=== PATIENT | female | born 1985 | race Caucasian/White ===

== ENCOUNTER 2017-04-17 23:59 | Emergency (ER) | payer OTHER ==
[2017-04-18 00:05] VITALS: TEMP 98.5
--- NOTE | 2017-04-18 01:03 | ED ---
Extremity Problem HPI - General Chief complaint: Extremity Problem,Nontraumatic Stated complaint: L leg numbness Time Seen by Provider: 04/18/17 00:19 Source: patient Mode of arrival: ambulatory Limitations: no limitations - Related Data Home Medications Medication Instructions Recorded Confirmed Albuterol Inhaler [Ventolin Hfa 1 - 2 puff INHALATION Q6HR PRN 08/29/16 04/18/17 Inhaler] Previous Rx's Medication Instructions Recorded Cyclobenzaprine [Flexeril] 10 mg PO TID #12 tab 04/18/17 Ibuprofen [Motrin] 600 mg PO Q6HR PRN #20 tab 04/18/17 methylPREDNISolone Dose Pack 4 mg PO DIRECTED #21 package 04/18/17 [Medrol Dose Pack] Allergies Allergy/AdvReac Type Severity Reaction Status Date / Time cefaclor [From Ceclor] Allergy Unknown Verified 04/18/17 00:05 Penicillins Allergy Unknown Verified 04/18/17 00:05 Review of Systems ROS Statement: Those systems with pertinent positive or pertinent negative responses have been documented in the HPI. ROS Other: All systems not noted in ROS Statement are negative. Past Medical History Past Medical History: Asthma History of Any Multi-Drug Resistant Organisms: None Reported Past Surgical History: No Surgical Hx Reported Past Psychological History: No Psychological Hx Reported Smoking Status: Current every day smoker Past Alcohol Use History: Rare Past Drug Use History: None Reported General Exam Limitations: no limitations Course Vital Signs 04/18/17 00:02 Temperature 98.5 F Pulse Rate 116 H Respiratory 18 Rate Blood Pressure 140/90 O2 Sat by Pulse 99 Oximetry Disposition Clinical Impression: Left thigh pain, Paresthesia of left leg Disposition: HOME SELF-CARE Condition: Good Instructions: Paresthesia (ED) Additional Instructions: Patient advised to follow-up with her primary care provider. Return to the emergency department if any alarming signs or symptoms occur. Recommended doing massage and applying heat and ice over the area. Prescriptions: Cyclobenzaprine [Flexeril] 10 mg PO TID #12 tab Ibuprofen [Motrin] 600 mg PO Q6HR PRN #20 tab PRN Reason: Pain methylPREDNISolone Dose Pack [Medrol Dose Pack] 4 mg PO DIRECTED #21 package Referrals: Hakeem Marley MD [Primary Care Provider] - 1-2 days Time of Disposition: 01:03
--- NOTE | 2017-04-18 01:44 | US ---
EXAM: US Duplex Left Lower Extremity Veins CLINICAL HISTORY: Reason: Pain TECHNIQUE: Real-time ultrasound scan of the veins of the left lower extremity with color Doppler flow, spectral waveform analysis and compression. COMPARISON: No relevant prior studies available. FINDINGS: Deep veins: Unremarkable. No DVT in the visualized common femoral, femoral, proximal deep femoral or popliteal veins. The veins are compressible with normal color flow and augmentation. Superficial veins: Unremarkable. No thrombus in the visualized great saphenous vein or in the lesser saphenous vein. Soft tissues: No acute findings. No popliteal cyst. IMPRESSION: Normal left lower extremity duplex venous ultrasound.
[2017-04-18 02:16] VITALS: BP 122/72; PULSE 87; RESP 16
== END 2017-04-18 02:16 | disposition home or self-care (01) ==
LOC: EC 23:59
DX: M79.652 Pain in left thigh (principal); R20.9 Unspecified disturbances of skin sensation; F17.200 Nicotine dependence, unspecified, uncomplicated; Z88.0 Allergy status to penicillin; Z88.1 Allergy status to other antibiotic agents
CPT/HCPCS: 99284

== ENCOUNTER 2018-03-09 17:17 | Inpatient (IN) | payer OTHER ==
[2018-03-09] MEDS ORDERED: SODIUM CHLORIDE 0.9% 1,000 ML IV STA (18:13)
--- NOTE | 2018-03-09 18:18 | ED ---
General Adult HPI <Josué Cruz - Last Filed: 03/09/18 19:36> - General Source: patient, RN notes reviewed Mode of arrival: ambulatory Limitations: no limitations <Gavin Damon - Last Filed: 03/09/18 19:48> - General Chief complaint: Neuro Symptoms/Deficit Stated complaint: Right SIde Numbness Time Seen by Provider: 03/09/18 18:04 - History of Present Illness Initial comments: 32-year-old female presents to the emergency room today with a chief complaint of numbness tingling sensation to the right side of her body. Patient does admit that she had episodes yesterday feeling some numbness tingling sensation that occurred yesterday around 5 PM. She states that last approximately hour. She states she thought maybe she just slept wrong as she had recently got up and was laying on that side. Patient states that she felt fine the rest the day. She states woke up this morning approximately 9 AM. She states that she began to notice that she had some numbness and tingling to the right upper and lower extremity when she would touch something noticed that it felt different than the opposite side. She states symptoms are now having some numbness and tingling sensation even without touching to the right upper extremity from the elbow down to the fingertips. Patient states that even the right side of her face and head feels different when compared to the left when she touches this area. Patient does admit to slight headache that began while waiting here in the emergency room. Patient also admits to some pain to the right ear at time she's describes as "sharp" type pain. Patient denies any other complaints or symptoms at this time. Patient denies any recent fever, chills, shortness of breath, chest pain, back pain, abdominal pain, nausea or vomiting, dysuria or hematuria, constipation or diarrhea, visual changes, or any other complaints. ( Gavin Damon) - Related Data Home Medications Medication Instructions Recorded Confirmed Albuterol Inhaler [Ventolin Hfa 1 - 2 puff INHALATION RT-Q6H PRN 08/29/16 Inhaler] Allergies Allergy/AdvReac Type Severity Reaction Status Date / Time cefaclor [From [facility]] Allergy Unknown Verified 03/09/18 18:03 Penicillins Allergy Unknown Verified 03/09/18 18:03 Review of Systems ROS Other: All systems not noted in ROS Statement are negative. <Josué Cruz - Last Filed: 03/09/18 19:36> ROS Other: All systems not noted in ROS Statement are negative. <Gavin Damon - Last Filed: 03/09/18 19:48> ROS Statement: Those systems with pertinent positive or pertinent negative responses have been documented in the HPI. Past Medical History Past Medical History: Asthma History of Any Multi-Drug Resistant Organisms: None Reported Past Surgical History: No Surgical Hx Reported Past Psychological History: No Psychological Hx Reported Smoking Status: Current every day smoker Past Alcohol Use History: Rare Past Drug Use History: None Reported <Gavin Damon - Last Filed: 03/09/18 19:48> General Exam <Josué Cruz - Last Filed: 03/09/18 19:36> Limitations: no limitations <Gavin Damon - Last Filed: 03/09/18 19:48> - General Exam Comments Initial Comments: General: The patient is awake and alert, in no distress, and does not appear acutely ill. Eye: Pupils are equal, round and reactive to light, extra-ocular movements are intact. No nystagmus. There is normal conjunctiva bilaterally. No signs of icterus. Ears, nose, mouth and throat: There are moist mucous membranes and no oral lesions. Neck: The neck is supple, there is no tenderness or JVD. Cardiovascular: There is a regular rate and rhythm. No murmur, rub or gallop is appreciated. Respiratory: Lungs are clear to auscultation, respirations are non-labored, breath sounds are equal. No wheezes, stridor, rales, or rhonchi. Gastrointestinal: Soft, non-distended, non-tender abdomen without masses or organomegaly noted. There is no rebound or guarding present. No CVA tenderness. Musculoskeletal: Normal ROM, no tenderness. Strength 5/5. Sensation intact. Pulses equal bilaterally 2+. Neurological: A&O x 3. CN II-XII intact, There are no obvious motor or sensory deficits. Coordination appears grossly intact. Speech is normal. Normal finger nose testing. Normal rapid alternating movements. Strength 5/5 in both upper and lower extremity. Normal gait. Skin: Skin is warm and dry and no rashes or lesions are noted. Psychiatric: Cooperative, appropriate mood & affect, normal judgment. (Gavin Damon) Course <Josué Cruz - Last Filed: 03/09/18 19:36> <Gavin Damon - Last Filed: 03/09/18 19:48> Vital Signs 03/09/18 17:31 Temperature 98.2 F Pulse Rate 86 Respiratory 16 Rate Blood Pressure 147/83 O2 Sat by Pulse 98 Oximetry - Reevaluation(s) Reevaluation #1: 03/09/18 19:34 PA supervision: I did proceed a [id number] evaluation the patient did discuss the findings with her. Patient did have onset yesterday afternoon more than 24 hours ago of right facial and extremity numbness which has persisted throughout the night and today. CAT scan imaging does show evidence of a hypodense area approximately 1 cm along the cortical margin of the posterior right frontal lobe I did discuss the findings with the patient and with Dr. Marley. Patient will be admitted with consultation by neurology. Patient currently is not an acute interventional candidate at this time (Josué Cruz) Reevaluation #2: 03/09/18 19:36 The patient is a smoker we did discuss the benefits of smoking cessation and discussed the risks factors of continuing to smoke. Patient states she is in the process of trying to quit. Entire conversation lasting about 3.1 minutes. ( Josué Cruz) Medical Decision Making - Lab Data Result diagrams: 03/09/18 18:32 03/09/18 18:32 <Josué Cruz - Last Filed: 03/09/18 19:36> - Lab Data Result diagrams: 03/09/18 18:32 03/09/18 18:32 <Gavin Damon - Last Filed: 03/09/18 19:48> - Lab Data Lab Results 03/09/18 03/09/18 03/09/18 Range/Units 18:32 18:32 18:32 WBC 10.7 H (3.8-10.6) k/uL RBC 4.99 (3.80-5.40) m/uL Hgb 13.3 (11.4-16.0) gm/dL Hct 40.6 (34.0-46.0) % MCV 81.4 (80.0-100.0) fL MCH 26.7 (25.0-35.0) pg MCHC 32.9 (31.0-37.0) g/dL RDW 13.3 (11.5-15.5) % Plt Count 255 (150-450) k/uL Neutrophils % 69 % Lymphocytes % 21 % Monocytes % 5 % Eosinophils % 4 % Basophils % 1 % Neutrophils # 7.3 (1.3-7.7) k/uL Lymphocytes # 2.2 (1.0-4.8) k/uL Monocytes # 0.5 (0-1.0) k/uL Eosinophils # 0.4 (0-0.7) k/uL Basophils # 0.1 (0-0.2) k/uL PT (9.0-12.0) sec INR (<1.2) APTT (22.0-30.0) sec Sodium 146 H (137-145) mmol/L Potassium 4.1 (3.5-5.1) mmol/L Chloride 105 (98-107) mmol/L Carbon Dioxide 25 (22-30) mmol/L Anion Gap 16 mmol/L BUN 14 (7-17) mg/dL Creatinine 0.70 (0.52-1.04) mg/dL Est GFR (CKD-EPI)AfAm >90 (>60 ml/min/1.73 sqM) Est GFR (CKD-EPI)NonAf >90 (>60 ml/min/1.73 sqM) Glucose 86 (74-99) mg/dL Calcium 9.4 (8.4-10.2) mg/dL Total Bilirubin 0.1 L (0.2-1.3) mg/dL AST 21 (14-36) U/L ALT 45 (9-52) U/L Alkaline Phosphatase 104 (38-126) U/L Total Protein 7.2 (6.3-8.2) g/dL Albumin 4.4 (3.5-5.0) g/dL Urine Color Urine Appearance (Clear) Urine pH (5.0-8.0) Ur Specific Abbott (1.001-1.035) Urine Protein (Negative) Urine Glucose (UA) (Negative) Urine Ketones (Negative) Urine Blood (Negative) Urine Nitrite (Negative) Urine Bilirubin (Negative) Urine Urobilinogen (<2.0) mg/dL Ur Leukocyte Esterase (Negative) Urine RBC (0-5) /hpf Urine WBC (0-5) /hpf Ur Squamous Epith Cells (0-4) /hpf Urine Bacteria (None) /hpf Urine Mucus (None) /hpf Urine HCG, Qual Not Detected (Not Detectd) 03/09/18 03/09/18 Range/Units 18:32 18:32 WBC (3.8-10.6) k/uL RBC (3.80-5.40) m/uL Hgb (11.4-16.0) gm/dL Hct (34.0-46.0) % MCV (80.0-100.0) fL MCH (25.0-35.0) pg MCHC (31.0-37.0) g/dL RDW (11.5-15.5) % Plt Count (150-450) k/uL Neutrophils % % Lymphocytes % % Monocytes % % Eosinophils % % Basophils % % Neutrophils # (1.3-7.7) k/uL Lymphocytes # (1.0-4.8) k/uL Monocytes # (0-1.0) k/uL Eosinophils # (0-0.7) k/uL Basophils # (0-0.2) k/uL PT 9.8 (9.0-12.0) sec INR 1.0 (<1.2) APTT 24.9 (22.0-30.0) sec Sodium (137-145) mmol/L Potassium (3.5-5.1) mmol/L Chloride (98-107) mmol/L Carbon Dioxide (22-30) mmol/L Anion Gap mmol/L BUN (7-17) mg/dL Creatinine (0.52-1.04) mg/dL Est GFR (CKD-EPI)AfAm (>60 ml/min/1.73 sqM) Est GFR (CKD-EPI)NonAf (>60 ml/min/1.73 sqM) Glucose (74-99) mg/dL Calcium (8.4-10.2) mg/dL Total Bilirubin (0.2-1.3) mg/dL AST (14-36) U/L ALT (9-52) U/L Alkaline Phosphatase (38-126) U/L Total Protein (6.3-8.2) g/dL Albumin (3.5-5.0) g/dL Urine Color Yellow Urine Appearance Cloudy H (Clear) Urine pH 7.5 (5.0-8.0) Ur Specific Abbott 1.019 (1.001-1.035) Urine Protein Negative (Negative) Urine Glucose (UA) Negative (Negative) Urine Ketones Negative (Negative) Urine Blood Negative (Negative) Urine Nitrite Negative (Negative) Urine Bilirubin Negative (Negative) Urine Urobilinogen <2.0 (<2.0) mg/dL Ur Leukocyte Esterase Large H (Negative) Urine RBC 3 (0-5) /hpf Urine WBC 14 H (0-5) /hpf Ur Squamous Epith Cells 10 H (0-4) /hpf Urine Bacteria Rare H (None) /hpf Urine Mucus Rare H (None) /hpf Urine HCG, Qual (Not Detectd) Disposition <Josué Cruz - Last Filed: 03/09/18 19:36> Is patient prescribed a controlled substance at d/c from ED?: No Time of Disposition: 19:35 <Gavin Damon - Last Filed: 03/09/18 19:48> Clinical Impression: CVA (cerebral vascular accident) Disposition: ADMITTED IP TO THIS HOSP Condition: Stable Referrals: Hakeem Marley MD [Primary Care Provider] - 1-2 days
[2018-03-09 18:43] LABS: Basophils # (A) 0.1 k/uL (0-0.2); Basophils % (A) 1 %; Eosinophils # (A) 0.4 k/uL (0-0.7); Eosinophils % (A) 4 %; HCT 40.6 % (34.0-46.0); HGB 13.3 gm/dL (11.4-16.0); Lymphocytes # (A) 2.2 k/uL (1.0-4.8); Lymphocytes % (A) 21 %; MCH 26.7 pg (25.0-35.0); MCHC 32.9 g/dL (31.0-37.0); MCV 81.4 fL (80.0-100.0); Mean Platelet Volume 8.3; Monocytes # (A) 0.5 k/uL (0-1.0); Monocytes % (A) 5 %; Neutrophils # (A) 7.3 k/uL (1.3-7.7); Neutrophils % (A) 69 %; Platelet Count 255 k/uL (150-450); RBC 4.99 m/uL (3.80-5.40); RDW 13.3 % (11.5-15.5); WBC 10.7 k/uL (3.8-10.6)
[2018-03-09 18:46] LABS: Appearance,Urine Cloudy (Clear); Bacteria,Urine Rare /hpf; Bilirubin,Urine Negative (Negative); Blood,Urine Negative (Negative); Color,Urine Yellow; Glucose,Urine (UA) Negative (Negative); Ketones,Urine Negative (Negative); Leukocyte Esterase,Urine Large (Negative); Mucus,Urine Rare /hpf; Nitrite,Urine Negative (Negative); PH, Urine 7.5 (5.0-8.0); Protein,Urine Negative (Negative); RBC,Urine 3 /hpf (0-5); Specific Gravity,Urine 1.019 (1.001-1.035); Squamous Epithelial Cell,Urine 10 /hpf (0-4); Urobilinogen,Urine <2.0 mg/dL (<2.0); WBC,Urine 14 /hpf (0-5)
[2018-03-09 18:52] LABS: ALT 45 U/L (9-52); AST 21 U/L (14-36); Albumin 4.4 g/dL (3.5-5.0); Alkaline Phosphatase 104 U/L (38-126); Anion Gap 16 mmol/L; Blood Urea Nitrogen 14 mg/dL (7-17); Calcium 9.4 mg/dL (8.4-10.2); Carbon Dioxide 25 mmol/L (22-30); Chloride 105 mmol/L (98-107); Glucose 86 mg/dL (74-99); Partial Thromboplastin Time 24.9 sec (22.0-30.0); Potassium 4.1 mmol/L (3.5-5.1); Prothrombin Time 9.8 sec (9.0-12.0); Sodium 146 mmol/L (137-145); Total Bilirubin 0.1 mg/dL (0.2-1.3); Total Protein 7.2 g/dL (6.3-8.2)
--- NOTE | 2018-03-09 19:09 | CT ---
EXAMINATION TYPE: CT brain wo con DATE OF EXAM: 03/09/2018 COMPARISON: NONE INDICATION: RIGHT SIDE TINGLING DLP: 1121 mGycm, Automated exposure control for dose reduction was used. CONTRAST: None CT of the brain is performed utilizing 3 mm thick sections through the posterior fossa and 3 mm thick sections through the remaining calvarium. Study is performed within 24 hours of arrival to the hosp [facility]. No abnormal hyperdensity is present to suggest an acute intracranial hemorrhage. No mass lesion is evident. There is a subtle hypodense wedge defect along the left posterior frontal region. Series 3 images 32- 33. Small cortical infarct be considered. This could be confirmed with MRI. Ventricles and sulci are appropriate for the patient age. Paranasal sinuses and mastoid air cells within the [id number] are clear. IMPRESSIONS: 1. There is a approximately 1 cm area of hypodensity along the cortical margin of the posterior rig ht frontal lobe. This could be an acute ischemic change. Consider follow-up MRI for confirmation.
[2018-03-09] MEDS ORDERED: ASPIRIN 325 MG TAB PO STA (19:45)
--- NOTE | 2018-03-10 01:56 | US ---
EXAMINATION TYPE: US carotid duplex BILAT DATE OF EXAM: 03/09/2018 COMPARISON: NONE CLINICAL HISTORY: Stenosis. Tingling on the right side. EXAM MEASUREMENTS: RIGHT: Peak Systolic Velocity (PSV) cm/sec ----- Right CCA: 79.0 ----- Right ICA: 82.2 ----- Right ECA: 122.6 ICA/CCA ratio: 1.0 RIGHT: End Diastole cm/sec ----- Right CCA: 19.2 ----- Right ICA: 24.1 ----- Right ECA: 19.2 LEFT: Peak Systolic Velocity (PSV) cm/sec ----- Left CCA: 98.3 ----- Left ICA: 106.2 ----- Left ECA: 153.5 ICA/CCA ratio: 1.1 LEFT: End Diastole cm/sec ----- Left CCA: 23.4 ----- Left ICA: 21.5 ----- Left ECA: 17.5 VERTEBRALS (direction of flow): Right Vertebral: Antegrade Left Vertebral: Antegrade Rhythm: Normal No significant stenosis seen. Elevated velocities in the Left ECA. IMPRESSION: There is antegrade flow in the vertebral arteries. The images and measurements suggest c lose to 0% stenosis in both internal carotid arteries. Criteria for Assigning % of Stenosis / Diameter reduction (Estimation based on the indirect measurements of the internal carotid artery velocities (ICA PSV). 1. Normal (no stenosis)=ICA PSV < 125 cm/s: ratio < 2.0: ICA EDV<40 cm/s. 2. Less than 50% stenosis=ICA PSV < 125 cm/s: ratio < 2.0: ICA EDV<40 cm/s. 3. 50 to 69% stenosis=ICA PSV of 125 to 230 cm/s: ration 2.0 ? 4.0: ICA EDV 40-100 cm/s. 4. Greater than 70% stenosis to near occlusion= ICA PSV > 230 cm/s: ratio > 4.0: ICA EDV > 100 cm/s. 5. Near occlusion= ICA PSV velocities may be low or undetectable: variable ratio and ICA EDV. 6. Total occlusion=unable to detect flow.
[2018-03-10 02:36] LABS: Cholesterol 162 mg/dL (<200); HDL Cholesterol 46 mg/dL (40-60); LDL Cholesterol,Calculated 85 mg/dL (0-99); Triglycerides 154 mg/dL (<150)
[2018-03-10] MEDS ORDERED: ALBUTEROL NEBULIZED 2.5 MG/3 ML INHALATION PRN (08:15)
--- NOTE | 2018-03-10 08:20 | P.HPIM ---
History of Present Illness H&P Date: 03/10/18 Chief Complaint: Right upper extremity numbness and tingling. This is a history of physical on a 32-year-old white female with history of mild asthma who is a nonsmoker. The patient states headache last week and then 2 days ago started having dorsal forearm numbness and tingling. No overt headache. No history of visual problems or overt headache or loss of consciousness. No syncopal he stated. But she stated that the tingling and numbness started becoming more severe and alarming. The patient was appropriately evaluated and computed tomography scan does show probable CVA element. She has a father who has CVA about 2 years ago. The patient states no sleeping problems no swallowing difficulty. No voiding difficulty. She is now essentially admitted for acute CVA. Review of Systems Constitutional: Denies chills, Denies fever Eyes: denies blurred vision, denies pain Ears, nose, mouth and throat: Denies headache, Denies sore throat Cardiovascular: Denies chest pain, Denies shortness of breath Respiratory: Denies cough Genitourinary: Denies dysuria, Denies hematuria Musculoskeletal: Denies myalgias Past Medical History Past Medical History: Asthma, Pneumonia Additional Past Medical History / Comment(s): lt side dominant, bronchitis, concussion 2017 History of Any Multi-Drug Resistant Organisms: None Reported Past Surgical History: No Surgical Hx Reported Additional Past Surgical History / Comment(s): wisdom teeth extracted Past Anesthesia/Blood Transfusion Reactions: No Reported Reaction Smoking Status: Current every day smoker - Past Family History Mother Family Medical History: No Reported History Father Family Medical History: Cancer, Diabetes Mellitus, Hypertension Additional Family Medical History / Comment(s): rectal cancer, optical stroke Medications and Allergies Home Medications Medication Instructions Recorded Confirmed Type Albuterol Inhaler [Ventolin Hfa 1 - 2 puff INHALATION RT-Q6H PRN 08/29/16 History Inhaler] Allergies Allergy/AdvReac Type Severity Reaction Status Date / Time cefaclor [From [facility]] Allergy Unknown Verified 03/09/18 18:03 Penicillins Allergy Unknown Verified 03/09/18 18:03 Physical Exam Vitals: Vital Signs Temp Pulse Pulse Resp BP BP Pulse Ox 03/10/18 06:41 79 16 122/66 03/10/18 04:00 97.9 F 72 16 116/63 97 03/10/18 00:00 98.8 F 79 16 140/67 93 L 03/09/18 22:41 79 140/67 03/09/18 21:41 85 18 128/75 97 03/09/18 20:41 98.6 F 82 18 135/83 95 03/09/18 19:49 97.6 F 72 18 142/74 100 03/09/18 17:31 98.2 F 86 16 147/83 98 Intake and Output 03/09/18 03/10/18 03/10/18 22:59 06:59 14:59 Intake Total 10 240 Balance 10 240 Intake: IV 10 .9 10 Oral 240 Other: Voiding Method Toilet Weight 145.15 kg 149.8 kg - Constitutional General appearance: no acute distress - EENT Eyes: EOMI - Respiratory Respiratory: bilateral: CTA - Cardiovascular Rhythm: regular Heart sounds: normal: S1, S2 Abnormal Heart Sounds: no S3 Gallop - Gastrointestinal General gastrointestinal: soft, no tenderness - Neurologic Neurologic: CNII-XII intact - Musculoskeletal Musculoskeletal: no right sided weakness - Psychiatric Psychiatric: A&O x's 3, appropriate affect Results CBC & Chem 7: 03/09/18 18:32 03/09/18 18:32 Labs: Abnormal Lab Results - Last 24 Hours (Table) 03/09/18 03/09/18 03/09/18 Range/Units 18:32 18:32 18:32 WBC 10.7 H (3.8-10.6) k/uL Sodium 146 H (137-145) mmol/L Total Bilirubin 0.1 L (0.2-1.3) mg/dL Triglycerides (<150) mg/dL Urine Appearance Cloudy H (Clear) Ur Leukocyte Esterase Large H (Negative) Urine WBC 14 H (0-5) /hpf Ur Squamous Epith Cells 10 H (0-4) /hpf Urine Bacteria Rare H (None) /hpf Urine Mucus Rare H (None) /hpf 03/09/18 Range/Units 18:32 WBC (3.8-10.6) k/uL Sodium (137-145) mmol/L Total Bilirubin (0.2-1.3) mg/dL Triglycerides 154 H (<150) mg/dL Urine Appearance (Clear) Ur Leukocyte Esterase (Negative) Urine WBC (0-5) /hpf Ur Squamous Epith Cells (0-4) /hpf Urine Bacteria (None) /hpf Urine Mucus (None) /hpf Thrombosis Risk Factor Assmnt - Choose All That Apply Any of the Below Risk Factors Present?: No Other Risk Factors: No Other congenital or acquired thrombophilia - If yes, enter type in comment: No Thrombosis Risk Factor Assessment Level: Very Low Risk Assessment and Plan (1) Mild asthma Current Visit: Yes Status: Acute Code(s): J45.998 - OTHER ASTHMA SNOMED Code(s): 907316685 (2) CVA (cerebral vascular accident) Current Visit: Yes Status: Acute Code(s): I63.9 - CEREBRAL INFARCTION, UNSPECIFIED SNOMED Code(s): 482731349 Plan: Await echocardiogram. Check lipid panel. Neurology is not consulted. Probable MRI/MRA to be instituted. Defer to neurology for that workup. See orders otherwise. New. Prognosis is nominal. CODE STATUS is full at this time. Time with Patient: Greater than 30
[2018-03-10] MEDS: ASPIRIN 325 MG TAB PO SCH (08:45)
[2018-03-10] MEDS: ACETAMINOPHEN TAB 325 MG TAB PO PRN ×2 (14:14→20:21)
--- NOTE | 2018-03-10 15:36 | MR ---
EXAMINATION TYPE: MR angio head wo con DATE OF EXAM: 03/10/2018 COMPARISON: NONE HISTORY: right side tingling TECHNIQUE: Time of flight images focusing on the [place] of [place] were performed without contrast.. 2-D and 3-D postprocessing imaging is performed. FINDINGS: There is no evidence of vascular occlusion or focal stenosis. No dissection or focal aneury smal outpouching is seen. There is a complete native of [place] with anatomic variant noted of anterio r cerebral artery A2 segment trifurcation (trident BHARGAV). The right vertebral artery is slightly domin ant. Visualized portions of the brain parenchymal be discussed in the brain and MRA dictation of the same date. IMPRESSION: Normal variant anatomy with no evidence of vascular occlusion, focal stenosis, dissection , or aneurysmal outpouching.
--- NOTE | 2018-03-10 17:17 | MR ---
EXAMINATION TYPE: MR brain wo con DATE OF EXAM: 03/10/2018 COMPARISON: CT without contrast March 09, 2018 HISTORY: right side tingling TECHNIQUE: Multiplanar, multisequence images of the brain and brainstem performed without contrast. FINDINGS: Diffusion weighted images demonstrate no evidence of a recent infarct or other diffusion ab normality. There is no MR correlate for the CT finding seen on CT series 3 image 32-33. However, most conspicuous on the T2 FLAIR sequence are scattered bilateral centrum ovale subcentimete r T2 hyperintensities some of which are oriented along Iraheta's fingers, and some extending centrally to the callosal-septal interface. There are similar T2 hyperintensities in the bilateral hendrickson radi melquiades and also a few scattered in the subcortical U fiber position. There is no associated vasogenic or cytotoxic edema. No other mass effect, and no volume loss. These T2 hyperintensities are nonspecific findings but could correlate with a clinical diagnosis of multiple sclerosis. Would also request cli nical consideration of other inflammatory and infectious etiologies within the differential diagnosis . There are no extra-axial fluid abnormalities. The ventricular system and cisternal spaces are normal in size and appearance. The brain volume is age appropriate. The craniocervical junction appears wi thin normal limits. The dural venous vascular flow voids appear patent. The visualized paranasal si nuses, mastoid sinus air cells, and middle ear cavities are clear. The globes are intact. IMPRESSION: 1. Negative for acute or subacute infarction. 2. Positive for scattered bilateral deep white matter T2 hyperintensities, as discussed.
--- NOTE | 2018-03-11 08:13 | P.DS ---
Providers Date of admission: 03/09/18 19:36 Attending physician: Hakeem Marley Consults: 03/09/18 19:42 Consult Physician Stat Consulting Provider: Fuad Hutchins Consult Reason/Comments: CVA Do you want consulting provider notified?: Yes Primary care physician: Hakeem Marley - Discharge Diagnosis(es) (1) Mild asthma Current Visit: Yes Status: Acute (2) CVA (cerebral vascular accident) Current Visit: Yes Status: Acute Hospital Course: This is a discharge summary 32-year-old white female essentially admitted for signs of CVA. The patient had MRI/MRA which did not show acute infarction. The patient is going to be discharged home today to rule out multiple sclerosis given her symptomatology. Appreciate neurology input. The patient will follow- up with me in about one week. Patient Condition at Discharge: Stable Plan - Discharge Summary Discharge Rx Participant: No New Discharge Prescriptions: No Action Albuterol Inhaler [Ventolin Hfa Inhaler] 1 - 2 puff INHALATION RT-Q6H PRN PRN Reason: Shortness Of Breath Discharge Medication List Albuterol Inhaler [Ventolin Hfa Inhaler] 1 - 2 puff INHALATION RT-Q6H PRN [History] Follow up Appointment(s)/Referral(s): Fuad Hutchins MD [STAFF PHYSICIAN] - 1 Week Hakeem Marley MD [Primary Care Provider] - 1 Week
[2018-03-11] MEDS: ASPIRIN 325 MG TAB PO SCH (09:25)
--- NOTE | 2018-03-11 10:26 | CONS ---
CONSULTATION DATE OF CONSULTATION: 03/10/2018 CHIEF COMPLAINT: Numbness. HISTORY OF PRESENT ILLNESS: The patient is a pleasant 32-year-old female who is being evaluated today on 03/10/2018 by the neurology service per the request of Dr. Marley for right-sided numbness. The patient was brought into [facility] Emergency Room with the complaints of numbness and tingling involving the right face, arm and leg. She did not recall having any weakness. She states that the symptoms gradually worsened over the past couple of days. She did have a slight headache a few days ago but denies any headache at this time. A CT scan of the brain was done in the emergency room which showed a 1 cm hypodense lesion involving the right frontal lobe. A carotid Doppler was done, which showed no hemodynamically significant stenosis. Her CBC was normal except for mild leukocytosis at 10.7. Her comprehensive metabolic profile and fasting lipid panel were normal. Her urinalysis showed 14 WBCs with large leukocyte esterase. When I was contacted with the consultation, I did order an MRI/MRA of the brain. I did review the MRI images and there appears to be multiple white matter lesions concerning for demyelinating disease. Her MRA of the brain was normal. PAST MEDICAL HISTORY: Asthma. SOCIAL HISTORY: The patient is a current every day smoker. She denies any alcohol or drug use. FAMILY HISTORY: Positive for cancer, diabetes, stroke and hypertension. HOME MEDICATIONS: Reviewed in the chart. ALLERGIES: PENICILLIN and CECLOR. REVIEW OF SYSTEMS: CONSTITUTIONAL: Negative. EYES: Negative. ENT: Negative. CARDIOVASCULAR: Negative. RESPIRATORY: Positive for occasional shortness of breath. NEUROLOGICAL: As mentioned above. GASTROINTESTINAL: Negative. GENITOURINARY: Negative. PSYCHIATRIC: Negative. DERMATOLOGICAL: Negative. ENDOCRINE: Negative. MUSCULOSKELETAL: Negative. PHYSICAL EXAM: Vital signs show a temperature of 96.8, pulse 76, respiration 18, blood pressure 114/63. GENERAL APPEARANCE: The patient is a well-developed, obese, female who appears to be in no acute distress. HEENT: Normocephalic, atraumatic, no facial asymmetry is seen. Extraocular muscles are intact. Neck is supple with no masses felt. CARDIOVASCULAR: Regular rate and rhythm. ABDOMEN: Nontender, nondistended. Extremities showed no edema or clubbing. NEUROLOGICAL EXAM: The patient is alert, aware and oriented x3. Speech and language are normal. Strength is full in all 4 extremities. Sensory exam was normal to light touch in all 4 extremities. No pronator drift is seen. No facial asymmetry is noticed on cranial nerve testing. IMPRESSION: 1. Right-sided numbness, resolved. 2. White-matter changes. 3. Urinary tract infection. 4. Tobacco dependence. RECOMMENDATION: The patient's presenting symptoms, MRI findings, age, and gender are quite concerning for demyelinating disease. Her MRI of the brain was reviewed and it did show multiple white matter lesions. There is no evidence of any ischemic strokes. Her symptoms were of gradual onset, which is more consistent with a demyelinating disorder. I had a lengthy discussion with the patient and her mother who was at bedside. The patient will need further outpatient workup for multiple sclerosis. For now, I will start her on Solu-Medrol 250 mg IV every 8 hours. If she is feeling well tomorrow, she will be cleared for discharge and may continue with the IV steroids as an outpatient. She will contact my office for scheduling. I will continue to follow with you. Further recommendations to follow. Thank you Dr. Marley for allowing me to participate in the care of your patient. If you have any questions, please feel free to contact me. MMODL / IJN: [id number] /
[2018-03-11 10:59] VITALS: RESP 18
--- NOTE | 2018-03-11 11:10 | ECHOF ---
Referral Reason:Thrombus MEASUREMENTS -------- HEIGHT: 165.1 cm WEIGHT: 149.7 kg BP: 122/60 IVSd: 1.3 cm (0.6 - 1.1) LVIDd: 4.0 cm (3.9 - 5.3) LVPWd: 1.1 cm (0.6 - 1.1) IVSs: 1.6 cm LVIDs: 1.9 cm LVPWs: 1.7 cm Ao Diam: 2.8 cm (2.0 - 3.7) AV Cusp: 2.1 cm (1.5 - 2.6) LA Diam: 3.0 cm (2.7 - 3.8) MV EXCURSION: 19.436 mm (> 18.000) MV EF SLOPE: 143 mm/s (70 - 150) EPSS: 0.4 cm MV E Mikey: 0.96 m/s MV DecT: 187 ms MV A Mikey: 0.80 m/s MV E/A Ratio: 1.19 RAP: 5.00 mmHg RVSP: 9.06 mmHg FINDINGS -------- Sinus rhythm. This was a technically difficult study with suboptimal views. The left ventricular size is normal. There is mild concentric left ventricular hypertrophy. Overa ll left ventricular systolic function is normal with, an EF between 55 - 60 %. The right ventricle is normal in size and function. The left atrium is normal in size. The right atrium is normal in size. Lumason used The aortic valve was not well visualized. There is trace mitral regurgitation. Trace tricuspid regurgitation present. The right ventricular systolic pressure, as measured by Dopp ler, is 9.06mmHg. The pulmonic valve was not well visualized. The aortic root size is normal. The pericardium is normal. CONCLUSIONS -------- 1. Sinus rhythm. 2. This was a technically difficult study with suboptimal views. 3. The left ventricular size is normal. 4. There is mild concentric left ventricular hypertrophy. 5. Overall left ventricular systolic function is normal with, an EF between 55 - 60 %. 6. The right ventricle is normal in size and function. 7. The left atrium is normal in size. 8. The right atrium is normal in size. 9. Lumason used 10. The aortic valve was not well visualized. 11. There is trace mitral regurgitation. 12. Trace tricuspid regurgitation present. 13. The right ventricular systolic pressure, as measured by Doppler, is 9.06mmHg. 14. The pulmonic valve was not well visualized. 15. The aortic root size is normal. 16. The pericardium is normal. RAILROAD DISPATCHER: Sary Toro RDCS
[2018-03-11 14:28] VITALS: BP 137/86; PULSE 103; TEMP 97.1
[2018-03-11 15:16] LABS: Appearance,Urine Clear (Clear); Bilirubin,Urine Negative (Negative); Blood,Urine Negative (Negative); Color,Urine Light Yellow; Glucose,Urine (UA) 3+ (Negative); Ketones,Urine Negative (Negative); Leukocyte Esterase,Urine Negative (Negative); Nitrite,Urine Negative (Negative); PH, Urine 6.5 (5.0-8.0); Protein,Urine Negative (Negative); Specific Gravity,Urine 1.007 (1.001-1.035); Urobilinogen,Urine <2.0 mg/dL (<2.0)
--- NOTE | 2018-03-19 04:15 | CDI ---
Last Revision, September 2017 Documentation Clarification Form Date: 03/19/2018 12:00:00 AM From: Carlyn Wyman Phone: If you have a question about this query, please contact Dulce Chavez Creel Cleaner at [phone] between 8am and 5pm. Admit Date: 03/09/2018 7:36:00 PM Patient Name: Kylah Paige Visit Number: [id number] Discharge Date: 03/21/2018 ATTENTION: The Clinical Documentation Specialists (CDI) and [facility] Coding Staff appreciate your assistance in clarifying documentation. Please respond to the clarification below the line at the bottom and electronically sign. The CDI & [facility] Coding staff will review the response and follow-up if needed. Please note: Queries are made part of the Legal Health Record. If you have any questions, please contact the author of this message via ITS. Dr. Hakeem Marley Conflicting documentation has been found in the medical record Discharge Summary documents CVA as discharge diagnosis. Discharge Summary also states MRI/MRA did not show infarction. DC'd home to rule out MS. History/Risk Factors: arm numbness, weakness, everyday smoker Treatment: Work up was for CVA and signs pf demyelinating disease found In your opinion what is the most clinically appropriate diagnosis for this patient? CVA confirmed. CVA ruled out. Other . MTDD
== END 2018-03-11 15:09 | disposition home or self-care (01) | DRG 59 ==
LOC: EC 17:17 → 6SEL 19:36
PROVIDERS: ADMIT Family Medicine; ATTEND Family Medicine
DX: G37.9 Demyelinating disease of central nervous system, unspecified (principal); Z68.43 Body mass index [BMI] 50.0-59.9, adult; J45.909 Unspecified asthma, uncomplicated; F17.200 Nicotine dependence, unspecified, uncomplicated; Z80.0 Family history of malignant neoplasm of digestive organs; Z82.3 Family history of stroke; Z82.49 Family history of ischemic heart disease and other diseases of the circulatory system; Z83.3 Family history of diabetes mellitus; Z88.1 Allergy status to other antibiotic agents; Z88.0 Allergy status to penicillin; Z87.820 Personal history of traumatic brain injury; R20.0 Anesthesia of skin; E66.9 Obesity, unspecified
CPT/HCPCS: 36415; 70450; 70544; 70551; 80053; 80061; 81001; 81003; 81025; 85025; 85610; 85730; 93306; 93880; 96360; 99285; 99406

== ENCOUNTER → 2018-04-27 | Outpatient (CLI) | payer OTHER ==
[2018-04-27 19:43] LABS: Appearance,CSF Clear; CSF Tube Number 4; CSF Tube Volume 3; Nucleated Cells, CSF 0 u/L (0-5); Red Blood Cell,CSF 0 u/L (0-10)
[2018-04-27 20:14] LABS: Total Protein,CSF 37 mg/dL (12-60)
[2018-04-30 13:03] LABS: IgG - CSF 2.7 mg/dL (0.0 - 3.4); IgG Synthesis Rate 4.15 mg/day (0.00 - 3.00); IgG/Albumin Index (CSF) 0.91 (0.00 - 0.77); Immunoglobulin G 711 mg/dL (700 - 1600)
== END | disposition home or self-care (01) ==
LOC: LABWHC1 11:13
PROVIDERS: ATTEND Psychiatry & Neurology Neurology
DX: R83.6 Abnormal cytological findings in cerebrospinal fluid (principal)
CPT/HCPCS: 36415; 82040; 82042; 82784; 83873; 83916; 84157; 87476; 88108; 89050

== ENCOUNTER 2018-06-02 17:19 | Emergency (ER) | payer OTHER ==
[2018-06-02] MEDS ORDERED: SODIUM CHLORIDE 0.9% 1,000 ML IV STA (17:54)
[2018-06-02] MEDS ORDERED: ACETAMINOPHEN IV (For NPO) 1,000 MG in EMPTY BAG 1 BAG IVPB ONE (17:55)
[2018-06-02] MEDS ORDERED: METOCLOPRAMIDE 5 MG/ML 2 ML VIAL IVP STA (17:55)
--- NOTE | 2018-06-02 17:58 | ED ---
General Adult HPI - General Chief complaint: Chest Pain Stated complaint: chest pain rt side Source: patient Mode of arrival: ambulatory Limitations: no limitations - History of Present Illness Initial comments: Dictation was produced using [employer] dictation software. please excuse any grammatical, word or spelling errors. Chief Complaint: 32-year-old female past medical history of obesity and asthma presents with chest pain and headache. History of Present Illness: Patient states that her symptoms last for several seconds. She's been having these episodes since yesterday. Symptoms are worsened with movement. She states that the pain is localized to the right anterior chest. Denies any pleuritic changes. Denies any dyspnea. She states that it is sharp. No family history of cardiac disease. Patient states she also has a headache that is typical of her usual headaches to the left parietal area. Denies any neuro deficits. The ROS documented in this emergency department record has been reviewed and confirmed by me. Those systems with pertinent positive or negative responses have been documented in the HPI. All other systems are other negative and/or noncontributory. - Related Data Home Medications Medication Instructions Recorded Confirmed Albuterol Inhaler [Ventolin Hfa 1 - 2 puff INHALATION RT-Q6H PRN 08/29/16 Inhaler] Allergies Allergy/AdvReac Type Severity Reaction Status Date / Time cefaclor [From [facility]] Allergy Unknown Verified 06/02/18 17:25 Penicillins Allergy Unknown Verified 06/02/18 17:25 Review of Systems ROS Statement: Those systems with pertinent positive or pertinent negative responses have been documented in the HPI. ROS Other: All systems not noted in ROS Statement are negative. Past Medical History Past Medical History: Asthma, Pneumonia Additional Past Medical History / Comment(s): lt side dominant, bronchitis, concussion 2017 History of Any Multi-Drug Resistant Organisms: None Reported Past Surgical History: No Surgical Hx Reported Additional Past Surgical History / Comment(s): wisdom teeth extracted Past Anesthesia/Blood Transfusion Reactions: No Reported Reaction Past Psychological History: No Psychological Hx Reported Smoking Status: Current every day smoker - Past Family History Mother Family Medical History: No Reported History Father Family Medical History: Cancer, Diabetes Mellitus, Hypertension Additional Family Medical History / Comment(s): rectal cancer, optical stroke General Exam - General Exam Comments Initial Comments: PHYSICAL EXAM: General Impression: Alert and oriented x3, not in acute distress HEENT: Normocephalic atraumatic, extra-ocular movements intact, pupils equal and reactive to light bilaterally, mucous membranes moist. Cardiovascular: Heart regular rate and rhythm, S1&S2 audible, no murmurs, rubs or gallops Chest: Lungs clear to auscultation bilaterally, no rhonchi, no wheeze, no rales Abdomen: Bowel sounds present, abdomen soft, non-tender, non-distended, no organomegaly Musculoskeletal: Pulses present and equal in all extremities, no peripheral edema Motor: Power 5/5 bilaterally, no focal deficits noted Neurological: CN II-XII grossly intact, no focal motor or sensory deficits noted Skin: Intact with no visualized rashes Psych: Normal affect and mood Limitations: no limitations Course Vital Signs 06/02/18 06/02/18 17:25 18:17 Temperature 98.4 F Pulse Rate 103 H 76 Respiratory 20 16 Rate Blood Pressure 161/90 121/61 O2 Sat by Pulse 99 97 Oximetry Medical Decision Making - Medical Decision Making ED course: 32-year-old female presents with headache and chest pain. Vital signs upon arrival shows heart rate of 103.Laboratory evaluation obtained. Patient has negative test. X-ray obtained showing no acute processes. EKG is benign. Patient given headache cocktail and intravenous fluids with improvement of headache. Patient be discharged. She is told that her medical evaluation does not demonstrate an high-risk features to suggest life-threatening chest pain. She is to follow-up with primary care physician upon discharge. EKG interpretation: Ventricular rate 92, normal sinus rhythm, IA interval 146, Q orthodox 84, QTc 447. No IA prolongation, no QTC prolongation, no ST or T- wave changes noted. . Overall, this EKG is unremarkable - Lab Data Lab Results 06/02/18 Range/Units 17:45 HCG, Quant <2.4 mIU/mL Disposition Clinical Impression: Chest pain Disposition: HOME SELF-CARE Condition: Good Instructions: Chest Pain (ED) Is patient prescribed a controlled substance at d/c from ED?: No Referrals: Hakeem Marley MD [Primary Care Provider] - 1-2 days Time of Disposition: 19:11
--- NOTE | 2018-06-02 18:56 | XR ---
EXAMINATION TYPE: XR chest 2V DATE OF EXAM: 06/02/2018 COMPARISON: 12/16/2015 HISTORY: Chest pain TECHNIQUE: Frontal and lateral views of the chest are obtained. FINDINGS: Heart and mediastinum are normal. Lungs are clear. Diaphragm is normal. Bony thorax appear s normal. IMPRESSION: Normal chest. No change.
[2018-06-02 19:28] VITALS: RESP 18
[2018-06-02 20:30] VITALS: BP 128/59; PULSE 63; TEMP 97.4
== END 2018-06-02 20:30 | disposition home or self-care (01) ==
LOC: EC 17:19
DX: R07.9 Chest pain, unspecified (principal); R51 Headache; J45.909 Unspecified asthma, uncomplicated; F17.200 Nicotine dependence, unspecified, uncomplicated; Z87.01 Personal history of pneumonia (recurrent); Z88.0 Allergy status to penicillin; Z88.1 Allergy status to other antibiotic agents
CPT/HCPCS: 99285; 96374; 96375; 96361 ×2; 36415; 93005; 84702; 71046; J2765; J0131

== ENCOUNTER → 2023-06-23 | Outpatient (CLI) | payer OTHER ==
[2023-06-23 15:53] LABS: Basophils # (A) 0.07 X 10*3/uL (0.00-0.10); Basophils % (A) 0.8 %; Eosinophils # (A) 0.22 X 10*3/uL (0.04-0.35); Eosinophils % (A) 2.5 %; HCT 40.3 % (37.2-46.3); HGB 12.5 d/dL (12.0-15.0); Lymphocytes # (A) 1.76 X 10*3/uL (0.90-5.00); Lymphocytes % (A) 19.9 %; MCH 26.2 pg (27.0-32.0); MCV 84.3 FL (80.0-97.0); Mean Platelet Volume 12.1 FL (9.5-12.2); Monocytes # (A) 0.45 X 10*3/uL (0.20-1.00); Monocytes % (A) 5.1 %; NRBC Per 100 WBC 0 X 10*3/uL (0.00-0.01); Neutrophils % (A) 71.2 %; Platelet Count 238 X 10*3/uL (140-440); RBC 4.78 X 10*6/uL (4.10-5.20); RDW 13.5 % (11.5-14.5); WBC 8.84 X 10*3/uL (4.50-10.00)
[2023-06-23 16:17] LABS: ALT 36 U/L (8-44); AST 22 U/L (13-35); Albumin 4.4 d/dL (3.8-4.9); Albumin/Globulin Ratio 1.69 Ratio (1.60-3.17); Alkaline Phosphatase 113 U/L (41-126); Blood Urea Nitrogen 14.4 mg/dL (9.0-27.0); Calcium 9.1 mg/dL (8.7-10.3); Chloride 107 mmol/L (96-109); Estradiol 69.1 pg/mL; Globulin 2.6 d/dL (1.6-3.3); Glucose 85 mg/dL (70-110); Potassium 4.2 mmol/L (3.5-5.5); Sodium 142 mmol/L (135-145); T4, Free (Free Thyroxine) 1.19 ng/dL (0.80-1.80); Total Bilirubin 0.3 mg/dL (0.3-1.2)
[2023-06-23 17:51] LABS: Luteinizing Hormone 6.7 mIU/mL
[2023-06-23 18:53] LABS: Insulin Level 15.1 mIU/mL (3.0-25.0)
[2023-06-23 20:39] LABS: Cardiolipin Ab IgG Interp Negative (Negative); Cardiolipin Ab IgM Interp Negative (Negative); Cardiolipin IgA Antibody <2.0 U/mL; Cardiolipin IgM Antibody <1.5 U/mL
[2023-06-24 10:11] LABS: Anti-Thrombin III Activity 107 % (79-109)
[2023-06-24 10:12] LABS: Protein C (Activity) 74 % (71-138)
[2023-06-24 13:45] LABS: APTT 53 Sec(s) (<43); APTT 1:1 Mix 42 Sec(s) (<43); Dilute Russell Viper Venom 40 Sec(s) (<44)
== END | disposition home or self-care (01) ==
LOC: LABWHC1 11:03
PROVIDERS: ATTEND Nurse Practitioner Family
DX: L68.0 Hirsutism (principal); Z79.899 Other long term (current) drug therapy; Z83.2 Family history of diseases of the blood and blood-forming organs and certain disorders involving the immune mechanism
CPT/HCPCS: 36415; 80053; 81241; 82627; 82670; 83002; 83525; 84144; 84403; 84439; 84443; 84481; 85025; 85300; 85303; 85306; 85613; 85730; 85732; 86147